=== PATIENT | female | born 1940 | race Caucasian/White ===

== ENCOUNTER 2017-09-04 14:23 | Emergency (ER) | payer MEDICARE, OTHER ==
[2017-09-04 14:41] VITALS: BP 175/74
--- NOTE | 2017-09-04 14:47 | UC ---
Laceration HPI - HPI Summary HPI Summary: 76 yo WF c/o right forehead laceration s/p fall while bending down to sit on a bench and felt "unsteady on her feet" and hit her head on concrete. 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 Hx Last Menstrual Period: post Laceration Location: Head Mechanism Of Injury: Blunt Trauma Onset/Duration: Sudden Onset Severity: Moderate Pain Intensity: 4 - Allergies/Home Medications Allergies/Adverse Reactions: Allergies Allergy/AdvReac Type Severity Reaction Status Date / Time No Known Allergies Allergy Verified 09/04/17 14:42 PMH/Surg Hx/FS Hx/Imm Hx - Additional Past Medical History Additional PMH: P.VERA, HTN Previously Healthy: Yes - Denies h/o CVA, MD Cardiovascular History: Hypertension Psychological History: Anxiety - Surgical History Surgical History: Yes Surgery Procedure, Year, and Place: left wrist plates - Family History Known Family History: Positive: Unknown - Social History Alcohol Use: None Substance Use Type: None Smoking Status (MU): Never Smoked Tobacco Review of Systems Constitutional: Negative Skin: Other - right above brow laceration Eyes: Negative ENT: Negative Respiratory: Negative Cardiovascular: Negative Gastrointestinal: Negative Genitourinary: Negative Motor: Negative Neurovascular: Negative Musculoskeletal: Negative Neurological: Negative Psychological: Negative All Other Systems Reviewed And Are Negative: Yes Physical Exam Triage Information Reviewed: Yes Vital Signs: Initial Vital Signs Temp 36.6 C 09/04/17 14:37 Pulse 80 09/04/17 14:37 Resp 16 09/04/17 14:37 BP 175/74 09/04/17 14:37 Pulse Ox 98 09/04/17 14:37 Eye Exam: Normal ENT Exam: Other - ROM around neck intact Dental Exam: Normal Neck exam: Normal Neck: Positive: Nontender Respiratory Exam: Normal Cardiovascular Exam: Normal Abdominal Exam: Normal Musculoskeletal Exam: Normal Neurological Exam: Normal Neurological: Positive: Alert - CN 2-12 grossly intact Psychological Exam: Normal Skin Exam: Normal Skin: Positive: significant lesion(s) - right brow laceration linear moderately deep, 3cm long and about 4mm deep - Additional Comments NO scalp tenderness or any other lesion noted on exam Laceration Repair - Laceration Repair 1 Description: Linear Laceration Size After Repair: Length (cm) - 3, Width (mm) - 3, Depth (mm) - 4 Type Injection: Local Anesthesia Used: 0.25% Marcaine Cleansing Completed Via Routine Prep: Yes Irrigation With Pressure Irrigation Device: No Closure Material: Sutures Closure Method: Multilayer Suture Of: Skin, SQ Suture Type: Other - ethilon Laceration Course/Dx - Course/Dx Course Of Treatment: right brow laceration 3cm long x 4mmdeep x 2mm wide, Subcut layer closed with FOUR 6-0 vicryl , followed by FIVE 5-0 ethilon superficial skin sutures, will cover with abx for moderately deep wound. Tdap Im x 1. CT head neg for bleed, but if signs of concussion occur such as n/v/ mental fogginess or lethargy, advosed to go to ER faby - Differential Dx - Laceration/Wound Differental Diagnoses: Laceration Provider Diagnoses: right brow laceration. Fall Discharge - Discharge Plan Condition: Stable Disposition: HOME Discharge Disposition Comment: Return to clinic in 2 days for a wound check Prescriptions: Cephalexin CAP* [Keflex CAP*] 500 mg PO BID 7 Days #14 cap Patient Education Materials: Laceration (ED) Referrals: Rach Rossi MD [Primary Care Provider] - Additional Instructions: F/u in urgent care in 2 days for wound check
[2017-09-04] MEDS ORDERED: Bupivacaine 0.25% MDV* 50 ML VIAL INJ ONE ×4 (14:48→15:07)
[2017-09-04] MEDS ORDERED: Bupivacaine 0.25% SDV* 30 ML ONE (15:06)
--- NOTE | 2017-09-04 15:09 | RAD ---
Indication: Fall, head injury. CT of the brain was performed without IV contrast. Ventricular structures are midline. No midline shift is noted. The extra-axial spaces are unremarkable. There is no evidence of intracranial mass or hemorrhage. No other high or low density lesions identified. When compared to previous exam of August 07, 2013 no significant change is noted. Mastoid air cells and paranasal sinuses are otherwise unremarkable. IMPRESSION: NO INTRACRANIAL MASS OR HEMORRHAGE IS NOTED.
[2017-09-04] MEDS ORDERED: Tetan/Diph/Pertus SYR(Tdap)* 0.5 ML SYR(BOOSTRIX) use SYR IM ONE (15:58)
== END 2017-09-04 17:05 | disposition home or self-care (01) ==
LOC: UCEAST 14:23
DX: S01.111A Laceration without foreign body of right eyelid and periocular area, initial encounter (principal); W18.39XA Other fall on same level, initial encounter; Y93.89 Activity, other specified; Y92.9 Unspecified place or not applicable; Z23 Encounter for immunization; D45 Polycythemia vera; I10 Essential (primary) hypertension; F41.9 Anxiety disorder, unspecified
CPT/HCPCS: 12001; 12031; 12052; 70450; 90715; 96372; 99212; G0463

== ENCOUNTER 2017-09-06 08:23 | Emergency (ER) | payer MEDICARE, OTHER ==
[2017-09-06 09:05] VITALS: BP 141/71
--- NOTE | 2017-09-06 09:48 | UC ---
Tito Padilla Nilda, scribed for Levon Urrutia MD on 09/06/17 at 0934 . HPI Wound/Suture Re-check - HPI Summary HPI Summary: This patient is a 76 year old F presenting to [facility] requesting wound recheck for a laceration on right eyebrow that was treated with sutures 2 days ago. The patient rates the pain 0/10 in severity. Symptoms aggravated and alleviated by nothing. - History Of Current Complaint Chief Complaint: UCSkin Stated Complaint: WOUND RECHECK Time Seen by Provider: 09/06/17 09:17 Hx Obtained From: Patient Hx Last Menstrual Period: post Onset/Duration: Lasting Days, Still Present Surgical Site: right eye brow Pain Intensity: 0 Pain Scale Used: 0-10 Numeric Procedure Type: Lac Repair - Allergies/Home Medications Allergies/Adverse Reactions: Allergies Allergy/AdvReac Type Severity Reaction Status Date / Time No Known Allergies Allergy Verified 09/06/17 09:06 PMH/Surg Hx/FS Hx/Imm Hx Endocrine History: Thyroid Disease Cardiovascular History: Hypertension - Surgical History Surgical History: Yes Surgery Procedure, Year, and Place: left wrist plates - Family History Known Family History: Negative: Cardiac Disease, Hypertension, Diabetes - Social History Alcohol Use: None Substance Use Type: None Smoking Status (MU): Never Smoked Tobacco Review of Systems Skin: Other - laceration with stitches on right eyebrow Respiratory: Other - negative SOB All Other Systems Reviewed And Are Negative: Yes Physical Exam Triage Information Reviewed: Yes Vital Signs: Initial Vital Signs Temp 98.8 F 09/06/17 08:59 Pulse 61 09/06/17 08:59 Resp 16 09/06/17 08:59 BP 141/71 09/06/17 08:59 Pulse Ox 100 09/06/17 08:59 Vital Signs Reviewed: Yes - Additional Comments VITAL SIGNS: Reviewed. GENERAL: Patient is a well developed and nourished F who is lying comfortable in the stretcher. Patient is not in any acute respiratory distress. HEAD AND FACE: Normocephalic EYES: PERRLA, EOMI x 2. EARS: Hearing grossly intact. MOUTH: Oropharynx within normal limits. NECK: Supple, trachea is midline, no adenopathy, no JVD, no carotid bruit. CHEST: Symmetric, no tenderness at palpation LUNGS: Clear to auscultation bilaterally. No wheezing or crackles. CVS: Regular rate and rhythm, S1 and S2 present, no murmurs or gallops appreciated. ABDOMEN: Soft, non-tender. Bowel sounds are normal. No abdominal abnormal pulsations. EXTREMITIES: Full ROM in all major joints, no edema, no cyanosis or clubbing. NEURO: Alert and oriented x 3. No acute neurological deficits. Speech is normal and follows commands. SKIN: Dry and warm; Laceration with stitches on right brow looks clean, dry, intact, with no erythema, and no discharge Course/Dx - Course Course Of Treatment: This patient is a 76 year old F presenting to [facility] requesting wound recheck for a laceration on right eyebrow that was treated with sutures 2 days ago. The patient rates the pain 0/10 in severity. Symptoms aggravated and alleviated by nothing. Laceration looks clean, dry, intact, with no erythema, and no discharge. Therefore, pt will have follow up with PCP or return to for suture removal. The patient is hemodynamically stable, alert and oriented x3. I discussed all the findings and test results with the patient. Patient was instructed to return to the urgent care or go to ER immediately if any of the symptoms return or worsens. Plan of care was discussed with the patient and patient understands and agrees. All questions were answered to patient satisfaction. There were no further complaints or concerns. - Differential Dx - Laceration/Wound Differential Diagnoses: Cellulitis, Dehiscence Provider Diagnoses: Wound check Discharge - Discharge Plan Condition: Stable Disposition: HOME Patient Education Materials: Acute Wound Care (ED) Referrals: Rach Rossi MD [Primary Care Provider] - Additional Instructions: Follow up with PCP or return to the UC in 7 -10 days for suture removal The documentation as recorded by the Tito husain Nilda accurately reflects the service I personally performed and the decisions made by , Levon Urrutia MD.
== END 2017-09-06 09:30 | disposition home or self-care (01) ==
LOC: UCEAST 08:23
DX: S01.111A Laceration without foreign body of right eyelid and periocular area, initial encounter (principal); I10 Essential (primary) hypertension; E07.9 Disorder of thyroid, unspecified; X58.XXXA Exposure to other specified factors, initial encounter; Y92.9 Unspecified place or not applicable
CPT/HCPCS: 99211; G0463

== ENCOUNTER 2017-09-13 08:08 | Emergency (ER) | payer MEDICARE, OTHER ==
--- NOTE | 2017-09-13 08:23 | UC ---
HPI Wound/Suture Re-check - HPI Summary HPI Summary: stitches above right eye brow placed 10 days ado---well approximated healing with out difficulty-here for removal - History Of Current Complaint Chief Complaint: UCWounds Stated Complaint: SUTURE REMOVAL Time Seen by Provider: 09/13/17 08:15 Hx Obtained From: Patient Hx Last Menstrual Period: post Onset/Duration: Sudden Onset, Lasting Days - 10, Still Present Severity: Mild Pain Intensity: 0 - Allergies/Home Medications Allergies/Adverse Reactions: Allergies Allergy/AdvReac Type Severity Reaction Status Date / Time No Known Allergies Allergy Verified 09/13/17 08:18 PMH/Surg Hx/FS Hx/Imm Hx Previously Healthy: No Endocrine History: Hypothyroidism Cardiovascular History: Hypertension - Surgical History Surgical History: Yes Surgery Procedure, Year, and Place: left wrist plates - Family History Known Family History: Positive: Unknown Negative: Cardiac Disease, Hypertension, Diabetes - Social History Occupation: Retired Lives: With Family Alcohol Use: None Substance Use Type: None Smoking Status (MU): Never Smoked Tobacco Review of Systems Constitutional: Negative Skin: Other - well healed wound above right eye, Eyes: Negative ENT: Negative Respiratory: Negative Cardiovascular: Negative Gastrointestinal: Negative Genitourinary: Negative Motor: Negative Neurovascular: Negative Musculoskeletal: Negative Neurological: Negative Psychological: Negative Is Patient Immunocompromised?: No All Other Systems Reviewed And Are Negative: Yes Physical Exam Triage Information Reviewed: Yes Appearance: Well-Appearing, No Pain Distress, Well-Nourished Vital Signs Reviewed: Yes Eye Exam: Normal Eyes: Positive: Conjunctiva Clear ENT Exam: Normal ENT: Positive: Normal ENT inspection, Hearing grossly normal. Negative: Trismus , Muffled voice, Hoarse voice, Dental tenderness, Sinus tenderness Dental Exam: Normal Neck exam: Normal Neck: Positive: Supple, Nontender Respiratory Exam: Normal Respiratory: Positive: Chest non-tender, No respiratory distress, No accessory muscle use Cardiovascular Exam: Normal Cardiovascular: Positive: Pulses Normal, Brisk Capillary Refill Musculoskeletal Exam: Normal Musculoskeletal: Positive: Strength Intact, ROM Intact, No Edema Neurological Exam: Normal Neurological: Positive: Alert, Muscle Tone Normal Psychological Exam: Normal Skin Exam: Normal Skin: Positive: Other - eechymosis remains right eye (is fading), well healed laceration above right eye Re-Evaluation - Re-Evaluation First Eval Change: Improved - sutures removed patient tolerated well, wound well approximated Course/Dx - Course Course Of Treatment: scar prevention, soap and water wash, follow BP with pcp - Differential Dx - Laceration/Wound Provider Diagnoses: healing wound/suture removal-hypertension in poor control Discharge - Discharge Plan Condition: Stable Disposition: HOME Patient Education Materials: Stitches Removal (ED) Referrals: Rach Rossi MD [Primary Care Provider] - If Needed
[2017-09-13 08:24] VITALS: BP 146/57
== END 2017-09-13 08:28 | disposition home or self-care (01) ==
LOC: UCEAST 08:08
DX: Z48.02 Encounter for removal of sutures (principal); I10 Essential (primary) hypertension; E03.9 Hypothyroidism, unspecified
CPT/HCPCS: 99211; G0463

== ENCOUNTER 2018-02-07 19:02 | Emergency (ER) | payer MEDICARE, OTHER ==
[2018-02-07 19:28] VITALS: BP 173/114
--- NOTE | 2018-02-07 19:52 | UC ---
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 Hx Last Menstrual Period: post ?: No Mechanism Of Injury: fall Onset/Duration: Sudden Onset Pain Intensity: 3 Pain Scale Used: 0-10 Numeric Associated Signs And Symptoms: Positive: LOC Duration Unknown, Memory Loss - Allergies/Home Medications Allergies/Adverse Reactions: Allergies Allergy/AdvReac Type Severity Reaction Status Date / Time No Known Allergies Allergy Verified 02/07/18 19:29 PMH/Surg Hx/FS Hx/Imm Hx Previously Healthy: No Endocrine History: Hypothyroidism Cardiovascular History: Hypertension - Surgical History Surgical History: Yes Surgery Procedure, Year, and Place: left wrist plates - Family History Known Family History: Positive: Unknown Negative: Cardiac Disease, Hypertension, Diabetes - Social History Occupation: Retired Lives: With Family Alcohol Use: None Substance Use Type: None Smoking Status (MU): Never Smoked Tobacco Review of Systems Constitutional: Negative Skin: Negative Eyes: Negative ENT: Negative Respiratory: Negative Cardiovascular: Negative Gastrointestinal: Negative Genitourinary: Negative Motor: Negative Neurovascular: Negative Musculoskeletal: Negative Neurological: Negative Psychological: Negative Is Patient Immunocompromised?: No All Other Systems Reviewed And Are Negative: Yes Physical Exam Triage Information Reviewed: Yes Appearance: Well-Appearing, No Pain Distress, Well-Nourished Vital Signs: Initial Vital Signs Temp 97.8 F 02/07/18 19:22 Pulse 67 02/07/18 19:22 Resp 16 02/07/18 19:22 BP 173/114 02/07/18 19:22 Pulse Ox 100 02/07/18 19:22 Vital Signs Reviewed: Yes Eye Exam: Normal Eyes: Positive: Conjunctiva Clear ENT Exam: Normal ENT: Positive: Normal ENT inspection, Hearing grossly normal, Pharynx normal. Negative: Trismus, Muffled voice, Hoarse voice Dental Exam: Normal Neck exam: Normal Neck: Positive: Supple, Nontender Respiratory Exam: Normal Respiratory: Positive: Chest non-tender, Lungs clear, Normal breath sounds, No respiratory distress, No accessory muscle use Cardiovascular Exam: Normal Cardiovascular: Positive: RRR, No Murmur, Pulses Normal, Brisk Capillary Refill Musculoskeletal Exam: Normal Musculoskeletal: Positive: Strength Intact, ROM Intact, No Edema Neurological Exam: Normal Neurological: Positive: Alert, Muscle Tone Normal Psychological Exam: Normal Skin Exam: Normal Head Injury Course/Dx - Course Course Of Treatment: patient will be discharged from the urgent care to go directly to the emergency department at [facility] with family driving - Differential Dx/Diagnosis Provider Diagnoses: headinjury, hypertension Discharge - Sign-Out/Discharge Documenting (check all that apply): Patient Departure - Discharge Plan Condition: Fair Disposition: HOME-RECOMMEND TO ED Patient Education Materials: Head Injury (ED), Hypertension (ED) Referrals: Rach Rossi MD [Primary Care Provider] - Additional Instructions: please go directly to the emergency department for further evaluation that can no be completed at the urgent care this evening - Billing Disposition and Condition Condition: FAIR Disposition: Home-Recommend to ED
== END 2018-02-07 19:55 | disposition home health service (06) ==
LOC: UCEAST 19:02
DX: S09.90XA Unspecified injury of head, initial encounter (principal); W19.XXXA Unspecified fall, initial encounter; Z91.81 History of falling; Y93.9 Activity, unspecified; Y92.9 Unspecified place or not applicable; I10 Essential (primary) hypertension
CPT/HCPCS: 99212; G0463

== ENCOUNTER 2018-02-07 20:16 | Emergency (ER) | payer MEDICARE, OTHER ==
[2018-02-07 20:26] VITALS: BP 168/68
[2018-02-07] MEDS ORDERED: Acetaminophen TAB* 325 MG PO ONE (22:54)
--- NOTE | 2018-02-07 22:59 | ED ---
Head Injury - HPI Summary HPI Summary: This is scribe Maximus Thompson documenting for attending Dr. Talon Huffman MD. A 77 y/o female present to ED s/p head injury. According to the patient, she experiences diffuse body myalgia. She characterizes the pain as soreness reaching 2-3/10 in severity. She stated that the fall was accidental as she was going up the stairs and fell backwards. Because of the incident, she fell backwards and hit her elbow and back of head. She denies any LOC. Currently on no blood thinners. Tetanus shot was in August. PMHx of falls. - History Of Current Complaint Chief Complaint: EDHeadInjury Stated Complaint: FALL/HEAD INJURY Time Seen by Provider: 02/07/18 22:44 Hx Obtained From: Patient Hx Last Menstrual Period: post Mechanism Of Injury: Fall From A Standing Position Onset/Duration: Started Hours Ago, Still Present Onset of Pain: Immediate Severity Currently: Mild Severity Initially: Mild Pain Intensity: 3 Pain Scale Used: 0-10 Numeric Location of Head Injury: Occipital Character: Other: - Soreness Aggravating Factor(s): Other: - NOTHING Alleviating Factor(s): Other: - NOTHING Associated Signs And Symptoms: Other: - Diffuse myalgia (soreness) - Allergies/Home Medications Allergies/Adverse Reactions: Allergies Allergy/AdvReac Type Severity Reaction Status Date / Time No Known Allergies Allergy Verified 02/07/18 19:29 PMH/Surg Hx/FS Hx/Imm Hx Endocrine/Hematology History: Reports: 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, Hx Thyroid Disease - hypo Cardiovascular History: Reports: Hx Hypertension Musculoskeletal History: Reports: Hx Osteoporosis Sensory History: Reports: Hx Cataracts - PENDING SURGERY, Hx Contacts or Glasses - FOR DRIVING Denies: Hx Hearing Aid Opthamlomology History: Reports: Hx Cataracts - PENDING SURGERY, Hx Contacts or Glasses - FOR DRIVING - Surgical History Surgery Procedure, Year, and Place: left wrist plates Hx Anesthesia Reactions: No - Immunization History Date of Tetanus Vaccine: unk Date of Influenza Vaccine: fall 2016 Infectious Disease History: No Infectious Disease History: Denies: Traveled Outside the [place] in Last 30 Days - Family History Known Family History: Negative: Cardiac Disease, Hypertension, Diabetes - Social History Alcohol Use: None Substance Use Type: Reports: None Smoking Status (MU): Never Smoked Tobacco Review of Systems Negative: Fever Positive: Myalgia - Diffuse, soreness Neurological: Other - NEGATIVE: LOC All Other Systems Reviewed And Are Negative: Yes Physical Exam - Summary Physical Exam Summary: GENERAL: Patient is a well-developed and nourished female who is lying comfortable in the stretcher. Patient is not in any acute respiratory distress. HEAD AND FACE: No signs of trauma. No ecchymosis, hematomas or skull depressions. No sinus tenderness. EYES: PERRLA, EOMI x 2, No injected conjunctiva, no nystagmus. EARS: Hearing grossly intact. Ear canals and tympanic membranes are within normal limits. MOUTH: Oropharynx within normal limits. NECK: Supple, trachea is midline, no adenopathy, no JVD, no carotid bruit, no c- spine tenderness, neck with full ROM. CHEST: Symmetric, no tenderness at palpation LUNGS: Clear to auscultation bilaterally. No wheezing or crackles. CVS: Regular rate and rhythm, S1 and S2 present, no murmurs or gallops appreciated. ABDOMEN: Soft, non-tender. No signs of distention. No rebound no guarding, and no masses palpated. Bowel sounds are normal. EXTREMITIES: FROM in all major joints, no edema, no cyanosis or clubbing. NEURO: Alert and oriented x 3. No acute neurological deficits. Speech is normal and follows commands. SKIN: Dry and warm. Mild head abrasion on left occipital area. Triage Information Reviewed: Yes Vital Signs On Initial Exam: Initial Vitals Temp Pulse Resp BP Pulse Ox 97.7 F 74 18 168/68 100 02/07/18 20:19 02/07/18 20:19 02/07/18 20:19 02/07/18 20:19 02/07/18 20:19 Vital Signs Reviewed: Yes Diagnostics - Vital Signs Vital Signs Temp Pulse Resp BP Pulse Ox 02/07/18 20:19 97.7 F 74 18 168/68 100 - Laboratory Lab Statement: Any lab studies that have been ordered have been reviewed, and results considered in the medical decision making process. Head Injury Course/Dx Course Of Treatment: A 77 y/o female present to ED s/p head injury. According to the patient, she experiences diffuse body myalgia. She characterizes the pain as soreness reaching 2-3/10 in severity. She stated that the fall was accidental as she was going up the stairs and fell backwards. Because of the incident, she fell backwards and hit her elbow and back of head. She denies any LOC. Currently on no blood thinners. No laboratory scans were done. Discussed with pt CAT scan, however, she does not want it. In the ED course, the patient recieved Tylenol. Pt will be discharged with a diagnosis of mild head injury. Pt is to follow up with PCP in 1-2 days. Pt is agreeable with this plan. - Diagnoses Provider Diagnoses: Head injury Discharge - Sign-Out/Discharge Documenting (check all that apply): Patient Departure - DISCHARGE - Discharge Plan Condition: Stable Disposition: HOME Patient Education Materials: Head Injury (ED) Referrals: Rach Rossi MD [Primary Care Provider] - 2 Days Additional Instructions: RETURN TO ED FOR ANY NEW OR WORSENING SYMPTOMS.
== END 2018-02-07 23:13 | disposition home or self-care (01) ==
LOC: ED 20:16
DX: S09.90XA Unspecified injury of head, initial encounter (principal); W19.XXXA Unspecified fall, initial encounter; Y92.9 Unspecified place or not applicable; Z91.81 History of falling; Y93.9 Activity, unspecified; I10 Essential (primary) hypertension
CPT/HCPCS: 99282

== ENCOUNTER → 2019-02-16 05:35 | Day surgery (SDC) | payer MEDICARE, OTHER ==
[~2019-02-16 05:35] MED LIST: Artificial Tear OPHTH.OINT* 3.5 GM ONE; BSS OPTH.SOL* BTL ONE; Buffered Lidocaine 1% SYRIN* 1 ML/SYRINGE INTRADERM ONE; Lactated Ringers 1000 ML Bag* 1,000 ML IV SCH; Lidocaine 1% w EPI 1:100,000* 30 ML VIAL ONE; Midazolam* 1 MG/ML 2 ML VIAL (2 MG) ONE; Mineral Oil Sterile, TOPICAL* 25 ML BTL ONE; Naloxone* 0.4 MG/ML 1 ML VIAL IV PRN; Propofol* 10 MG/ML 20 ML BTL ONE; ceFAZolin 2 GM in NS PREMIX(*) 2 GM/100 ML BAG IVPB ONE; fentaNYL* 50 MCG/ML 2 ML VIAL (100 MCG VIAL) ONE
[2019-02-16 11:13] VITALS: BP 130/60
== END | disposition home or self-care (01) ==
LOC: OR 05:35
PROVIDERS: ATTEND Plastic Surgery
DX: C44.319 Basal cell carcinoma of skin of other parts of face (principal); R60.0 Localized edema; E03.9 Hypothyroidism, unspecified
CPT/HCPCS: 88305; 88331; 88332; A9270-GY; J0690; J2250; J2704; J3010

== ENCOUNTER 2022-12-10 03:54 | Inpatient (IN) ==
[2022-12-10 05:42] LABS: Venous Bicarbonate HCO3 36.8 mmol/L (24-28)
[2022-12-10 06:22] LABS: Hematocrit 42.1 % (35-45); Hemoglobin 13.4 g/dL (11.5-14.3); Mean Corpuscular Hemoglobin 35.2 pg (27-33); Mean Corpuscular Hgb Conc 31.9 g/dL (31-36); Mean Corpuscular Volume 110.5 fL (80-97); Mean Platelet Volume 9.1 fL (7.5-11.2); Platelet Count 939 10^3/uL (150-450); Red Blood Count 3.81 10^6/uL (3.63-4.92); Red Cell Distribution Width 18.8 % (12-17); White Blood Count 65.8 10^3/uL (3.8-11.8)
[2022-12-10 06:39] LABS: ALT 44 U/L (7-52); Albumin 3.7 g/dL (3.2-5.2); Albumin/Globulin Ratio 2.1 (1-3); Alkaline Phosphatase 155 U/L (35-149); Blood Urea Nitrogen 17 mg/dL (6-24); CO2 Carbon Dioxide 32 mmol/L (22-32); Calcium 8.7 mg/dL (8.6-10.3); Chloride 96 mmol/L (101-111); Creatinine, Serum 0.71 mg/dL (0.51-0.95); Globulin 1.8 g/dL (2-4); Glucose 98 mg/dL (70-100); Lipase 20 U/L (11.0-82.0); Sodium 140 mmol/L (135-145); Total Protein 5.5 g/dL (6.4-8.9); eGFR CKD-EPI 85.4 (>60)
[2022-12-10 06:43] LABS: Anion Gap 12 mmol/L (2-16)
[2022-12-10 06:53] LABS: Anisocytosis 1+; Macrocytosis 2+; Polychromasia 1+
[2022-12-10 06:54] LABS: ABS Basophils 0.1 10^3/uL (0.0-0.1); ABS Eosinophils 0.4 10^3/uL (0.0-0.5); ABS Lymphocytes 1.3 10^3/uL (1.0-4.8); ABS Monocytes 0.5 10^3/uL (0.0-0.9); ABS Neutrophils 63.5 10^3/uL (1.5-7.6); ABS Nucleated RBC 0.72 10^3/ul; Eosinophil % 0.6 %; Nucleated Red Blood Cells % 1.1 /100 WBC (0.0-0.4)
[2022-12-10] MEDS ORDERED: Iohexol 350 (CONTRAST) 500 ML MDV IV ONE (06:57)
[2022-12-10] MEDS ORDERED: NS 0.9% 1000 ml BAG 1,000 ML IV ONE (07:34)
[2022-12-10] MEDS ORDERED: Ondansetron 4 mg VIAL 2 MG/ML 2 ml VIAL IV ONE (07:34)
[2022-12-10 08:51] LABS: Hematocrit 36.5 % (35-45); Hemoglobin 11.4 g/dL (11.5-14.3); Mean Corpuscular Hemoglobin 35.7 pg (27-33); Mean Corpuscular Hgb Conc 31.3 g/dL (31-36); Red Cell Distribution Width 18.7 % (12-17); White Blood Count 60.8 10^3/uL (3.8-11.8)
[2022-12-10 09:21] LABS: Anisocytosis 2+; Macrocytosis 2+; Polychromasia 2+
[2022-12-10 09:22] LABS: ABS Basophils 0.3 10^3/uL (0.0-0.1); ABS Eosinophils 0.5 10^3/uL (0.0-0.5); ABS Lymphocytes 0.9 10^3/uL (1.0-4.8); ABS Neutrophils 58.1 10^3/uL (1.5-7.6); Eosinophil % 0.8 %; Lymphocyte % 1.5 %; Mean Platelet Volume 8.9 fL (7.5-11.2); Nucleated Red Blood Cells % 0.5 /100 WBC (0.0-0.4); Platelet Count 626 10^3/uL (150-450); Potassium Redraw 4.7 mmol/L (3.5-5.0)
[2022-12-10 10:25] LABS: INR 1.37 (0.88-1.18)
[2022-12-10] MEDS ORDERED: Midazolam 10 mg/10 ml VIAL 1 mg/ml 10 ml VIAL (10 mg) IV SLOW PU ONE (10:41)
[2022-12-10] MEDS ORDERED: fentaNYL 100 mcg/2 ml 50 MCG/ML VIAL IV SLOW PU ONE (10:41)
[2022-12-10] MEDS ORDERED: Flumazenil 0.5 mg/5 ml 0.1 MG/ML 5 ml VIAL IV PRN (10:41)
[2022-12-10] MEDS ORDERED: Naloxone 0.4 mg VIAL 0.4 mg/ml 1 ml VIAL IV PUSH PRN (10:41)
[2022-12-10] MEDS ORDERED: Iohexol 350 (CONTRAST) 100 ML PAK IV ONE ×2 (10:57→11:15)
[2022-12-10] MEDS ORDERED: Lidocaine 1% VIAL 10 MG/ML VIAL 30 ML ONE (10:57)
[2022-12-10] MEDS ORDERED: Heparin 2 UNITS/ML IVPREMIX 3,000 UNIT/1,500 ML BAG IV ONE (10:57)
[2022-12-10] MEDS ORDERED: Midazolam 5 mg/5 ml VIAL 1 mg/ml 5 ml VIAL (5 mg) ONE (11:03)
[2022-12-10] MEDS ORDERED: Ondansetron 4 mg VIAL 2 MG/ML 2 ml VIAL ONE (11:03)
[2022-12-10] MEDS ORDERED: fentaNYL 100 mcg/2 ml 50 MCG/ML VIAL ONE ×2 (11:03→13:45)
[2022-12-10] MEDS ORDERED: nitroGLYCERIN DRIP 25,000 MCG/250 ML BTL ONE (11:59)
[2022-12-10] MEDS ORDERED: Piperacillin/Tazobac ADVAN 3.375 GM in NS 0.9% 100 ml BAG 100 ML IV ONE (13:27)
[2022-12-10] MEDS ORDERED: Zosyn per Pharmacy NOTE FOLLOW UP SCH (14:00)
[2022-12-10] MEDS ORDERED: Acetaminophen IV 1 GM/100ML 1,000 MG/100 ML BAG IV PRN (14:40)
[2022-12-10 16:36] LABS: Hematocrit 36.7 % (35-45); Hemoglobin 11.3 g/dL (11.5-14.3); Mean Corpuscular Hemoglobin 34.6 pg (27-33); Mean Corpuscular Hgb Conc 30.6 g/dL (31-36); Mean Corpuscular Volume 112.8 fL (80-97); Mean Platelet Volume 8.8 fL (7.5-11.2); Platelet Count 905 10^3/uL (150-450); Red Blood Count 3.26 10^6/uL (3.63-4.92); Red Cell Distribution Width 19.3 % (12-17); White Blood Count 60.3 10^3/uL (3.8-11.8)
[2022-12-10 16:57] LABS: Anisocytosis 1+; Macrocytosis 2+
[2022-12-10 16:58] LABS: Platelet Morphology Large; Polychromasia 1+; Tear Drop Cells 1+
[2022-12-10 16:59] LABS: ABS Basophils 0.5 10^3/uL (0.0-0.1); ABS Eosinophils 0.2 10^3/uL (0.0-0.5); ABS Lymphocytes 0.9 10^3/uL (1.0-4.8); ABS Monocytes 0.9 10^3/uL (0.0-0.9); ABS Neutrophils 57.8 10^3/uL (1.5-7.6); ABS Nucleated RBC 0.31 10^3/ul; Eosinophil % 0.4 %; Lymphocyte % 1.5 %; Nucleated Red Blood Cells % 0.5 /100 WBC (0.0-0.4)
[2022-12-10] MEDS: ZOSYN 3.375 GM Q8H per EXTENDED INFUSION IV SCH (23:03)
[2022-12-11] MEDS: ZOSYN 3.375 GM Q8H per EXTENDED INFUSION IV SCH ×3 (06:06→21:01)
[2022-12-11 07:27] LABS: Hematocrit 33.5 % (35-45); Hemoglobin 10.4 g/dL (11.5-14.3); Mean Corpuscular Hemoglobin 35.5 pg (27-33); Mean Corpuscular Hgb Conc 30.9 g/dL (31-36); Mean Corpuscular Volume 114.9 fL (80-97); Mean Platelet Volume 8.7 fL (7.5-11.2); Platelet Count 703 10^3/uL (150-450); Red Blood Count 2.92 10^6/uL (3.63-4.92); Red Cell Distribution Width 19.3 % (12-17); White Blood Count 65.2 10^3/uL (3.8-11.8)
[2022-12-11 07:47] LABS: Calcium 8.2 mg/dL (8.6-10.3); Potassium 4.9 mmol/L (3.5-5.0)
[2022-12-11 07:53] LABS: Creatinine, Serum 0.82 mg/dL (0.51-0.95); Phosphorus 3.6 mg/dL (2.5-5.0); eGFR CKD-EPI 71.8 (>60)
[2022-12-11] MEDS ORDERED: Furosemide 40 mg/4 ml IV VIAL IV SLOW PU ONE (08:07)
[2022-12-11 08:35] LABS: Anisocytosis 1+; Hypochromasia 1+; Macrocytosis 2+; Polychromasia 1+
[2022-12-11 08:36] LABS: Platelet Morphology Large
[2022-12-11 08:38] LABS: ABS Basophils 0.2 10^3/uL (0.0-0.1); ABS Eosinophils 0.2 10^3/uL (0.0-0.5); ABS Monocytes 1.1 10^3/uL (0.0-0.9); ABS Neutrophils 62.7 10^3/uL (1.5-7.6); ABS Nucleated RBC 0.27 10^3/ul; Eosinophil % 0.4 %; Lymphocyte % 1.6 %; Nucleated Red Blood Cells % 0.4 /100 WBC (0.0-0.4); Tear Drop Cells 1+
[2022-12-11] MEDS: Pantoprazole VIAL 40 MG VIAL IV SCH (08:56)
[2022-12-11] MEDS ORDERED: Lidocaine 1% MPF 5 ML VIAL INJ ONE (10:14)
[2022-12-11] MEDS ORDERED: Lactated Ringers 1000 ml BAG 500 ML IV ONE ×2 (10:44→11:59)
[2022-12-11] MEDS ORDERED: Lactated Ringers 1000 ml BAG 1,000 ML IV SCH (12:00)
[2022-12-11] MEDS ORDERED: NS 0.9% 1000 ml BAG 1,000 ML IV SCH (13:00)
[2022-12-11 14:14] LABS: Urine Appearance Clear; Urine Bilirubin Negative (Negative); Urine Blood Negative (Negative); Urine Color Yellow; Urine Glucose Negative (Negative); Urine Ketones Negative (Negative); Urine Nitrite Negative (Negative); Urine Protein Negative (Negative); Urine Specific Gravity 1.031 (1.002-1.030); Urine Urobilinogen Negative (Negative)
[2022-12-11 17:37] LABS: Anisocytosis 1+; Hypochromasia 1+; Macrocytosis 2+; Polychromasia 1+; Tear Drop Cells 1+
[2022-12-11 17:40] LABS: ABS Basophils 0.5 10^3/uL (0.0-0.1); ABS Eosinophils 0.4 10^3/uL (0.0-0.5); ABS Lymphocytes 0.3 10^3/uL (1.0-4.8); ABS Monocytes 0.2 10^3/uL (0.0-0.9); ABS Neutrophils 62.3 10^3/uL (1.5-7.6); ABS Nucleated RBC 0.05 10^3/ul; Eosinophil % 0.6 %; Hematocrit 29.7 % (35-45); Hemoglobin 9.1 g/dL (11.5-14.3); Lymphocyte % 0.5 %; Mean Corpuscular Hemoglobin 35.1 pg (27-33); Mean Corpuscular Hgb Conc 30.8 g/dL (31-36); Mean Corpuscular Volume 114.1 fL (80-97); Mean Platelet Volume 8.5 fL (7.5-11.2); Nucleated Red Blood Cells % 0.1 /100 WBC (0.0-0.4); Platelet Count 678 10^3/uL (150-450); Red Cell Distribution Width 19.2 % (12-17); White Blood Count 63.8 10^3/uL (3.8-11.8)
[2022-12-11 17:46] LABS: Calcium 7.6 mg/dL (8.6-10.3); Creatinine, Serum 0.92 mg/dL (0.51-0.95); Potassium 4.6 mmol/L (3.5-5.0); eGFR CKD-EPI 62.6 (>60)
[2022-12-12] MEDS: ZOSYN 3.375 GM Q8H per EXTENDED INFUSION IV SCH ×3 (04:18→20:12)
[2022-12-12 06:18] LABS: Hematocrit 32.5 % (35-45); Hemoglobin 9.9 g/dL (11.5-14.3); Mean Corpuscular Hemoglobin 34.6 pg (27-33); Mean Corpuscular Hgb Conc 30.6 g/dL (31-36); Mean Corpuscular Volume 113.1 fL (80-97); Mean Platelet Volume 8.6 fL (7.5-11.2); Platelet Count 744 10^3/uL (150-450); Red Blood Count 2.87 10^6/uL (3.63-4.92); Red Cell Distribution Width 19.2 % (12-17)
[2022-12-12 07:03] LABS: CO2 Carbon Dioxide 31 mmol/L (22-32); Calcium 7.8 mg/dL (8.6-10.3); Chloride 104 mmol/L (101-111); Sodium 144 mmol/L (135-145)
[2022-12-12 07:08] LABS: Blood Urea Nitrogen 22 mg/dL (6-24); Creatinine, Serum 0.96 mg/dL (0.51-0.95); Glucose 70 mg/dL (70-100); eGFR CKD-EPI 59.4 (>60)
[2022-12-12 07:24] LABS: Anion Gap 9 mmol/L (2-16)
[2022-12-12 07:27] LABS: Potassium, Whole Blood 3.8 mmol/L (3.4-4.5)
[2022-12-12] MEDS: Pantoprazole VIAL 40 MG VIAL IV SCH (08:00)
[2022-12-12 08:32] LABS: Macrocytosis 1+
[2022-12-12 08:33] LABS: Polychromasia 1+
[2022-12-12 08:34] LABS: Hypochromasia 2+
[2022-12-12 08:35] LABS: Anisocytosis 1+
[2022-12-12 08:40] LABS: ABS Basophils 0.8 10^3/uL (0.0-0.1); ABS Eosinophils 0.1 10^3/uL (0.0-0.5); ABS Monocytes 1.3 10^3/uL (0.0-0.9); ABS Neutrophils 78.8 10^3/uL (1.5-7.6); ABS Nucleated RBC 0.18 10^3/ul; Eosinophil % 0.1 %; Lymphocyte % 1.3 %; Nucleated Red Blood Cells % 0.2 /100 WBC (0.0-0.4)
[2022-12-12 08:52] LABS: Cholesterol 138 mg/dL; HDL Cholesterol 34.9 mg/dL; LDL Cholesterol 78 mg/dL; Triglycerides 124 mg/dL
[2022-12-13] MEDS: ZOSYN 3.375 GM Q8H per EXTENDED INFUSION IV SCH ×2 (04:22→12:58)
[2022-12-13] MEDS ORDERED: Lidocaine 2% PF 5 ML VIAL INJ ONE (11:49)
[2022-12-13 14:40] LABS: Hematocrit 28.9 % (35-45); Hemoglobin 8.9 g/dL (11.5-14.3); Mean Corpuscular Hgb Conc 30.6 g/dL (31-36); Mean Corpuscular Volume 110.9 fL (80-97); Mean Platelet Volume 8.4 fL (7.5-11.2); Platelet Count 632 10^3/uL (150-450); Red Blood Count 2.61 10^6/uL (3.63-4.92); Red Cell Distribution Width 19.2 % (12-17); White Blood Count 68.2 10^3/uL (3.8-11.8)
[2022-12-13 15:15] LABS: ABS Basophils 0.2 10^3/uL (0.0-0.1); ABS Eosinophils 0.2 10^3/uL (0.0-0.5); ABS Lymphocytes 0.5 10^3/uL (1.0-4.8); ABS Monocytes 0.6 10^3/uL (0.0-0.9); ABS Neutrophils 66.6 10^3/uL (1.5-7.6); ABS Nucleated RBC 0.08 10^3/ul; Eosinophil % 0.3 %; Lymphocyte % 0.8 %; Nucleated Red Blood Cells % 0.1 /100 WBC (0.0-0.4)
[2022-12-14 07:38] LABS: Hematocrit 26.9 % (35-45); Hemoglobin 8.4 g/dL (11.5-14.3); Mean Corpuscular Hemoglobin 35.3 pg (27-33); Mean Corpuscular Hgb Conc 31.4 g/dL (31-36); Mean Corpuscular Volume 112.3 fL (80-97); Mean Platelet Volume 8.5 fL (7.5-11.2); Platelet Count 554 10^3/uL (150-450); Red Blood Count 2.39 10^6/uL (3.63-4.92); Red Cell Distribution Width 19.5 % (12-17); White Blood Count 70.1 10^3/uL (3.8-11.8)
[2022-12-14 08:18] LABS: Calcium 7.5 mg/dL (8.6-10.3); Creatinine, Serum 0.76 mg/dL (0.51-0.95); Magnesium 1.8 mg/dL (1.9-2.7); Potassium 3.4 mmol/L (3.5-5.0); eGFR CKD-EPI 78.7 (>60)
[2022-12-14] MEDS ORDERED: Magnesium Sulfate 2 gm BAG 2 GM/50 ML BAG IVPB ONE (08:20)
[2022-12-14] MEDS ORDERED: Potassium EFFERVES 25 meq TAB PO ONE (09:00)
[2022-12-14 09:40] LABS: Macrocytosis 2+
[2022-12-14 09:41] LABS: ABS Basophils 0.5 10^3/uL (0.0-0.1); ABS Eosinophils 0.3 10^3/uL (0.0-0.5); ABS Lymphocytes 0.8 10^3/uL (1.0-4.8); ABS Monocytes 0.1 10^3/uL (0.0-0.9); ABS Neutrophils 68.5 10^3/uL (1.5-7.6); ABS Nucleated RBC 0.19 10^3/ul; Eosinophil % 0.4 %; Lymphocyte % 1.2 %; Nucleated Red Blood Cells % 0.3 /100 WBC (0.0-0.4)
[2022-12-14 18:19] LABS: Urine Appearance Clear; Urine Bilirubin Negative (Negative); Urine Blood 1+ (Negative); Urine Color Yellow; Urine Glucose Negative (Negative); Urine Ketones Negative (Negative); Urine Nitrite Negative (Negative); Urine Protein 1+(30 mg/dL) (Negative); Urine Specific Gravity 1.019 (1.002-1.030); Urine Urobilinogen Negative (Negative)
[2022-12-14 18:21] LABS: Urine Bacteria 1+ (Absent); Urine Red Blood Cell Trace(0-2/hpf) (Absent); Urine Squamous Epithelial Cell Present (Absent); Urine White Blood Cell Trace(0-5/hpf) (Absent)
[2022-12-15] MEDS ORDERED: Ondansetron ODT 4 mg TAB 4 MG TAB PO ONE (07:34)
[2022-12-16 06:25] LABS: Hematocrit 29.3 % (35-45); Hemoglobin 9.1 g/dL (11.5-14.3); Mean Corpuscular Hemoglobin 33.2 pg (27-33); Mean Corpuscular Volume 107.2 fL (80-97); Mean Platelet Volume 9.1 fL (7.5-11.2); Platelet Count 512 10^3/uL (150-450); Red Blood Count 2.74 10^6/uL (3.63-4.92); Red Cell Distribution Width 18.7 % (12-17); White Blood Count 86.1 10^3/uL (3.8-11.8)
[2022-12-16 06:40] LABS: Calcium 8.2 mg/dL (8.6-10.3); Magnesium 2.3 mg/dL (1.9-2.7); Potassium 4.1 mmol/L (3.5-5.0)
[2022-12-16 06:46] LABS: Creatinine, Serum 0.93 mg/dL (0.51-0.95); eGFR CKD-EPI 61.7 (>60)
[2022-12-16 07:08] LABS: Macrocytosis 2+
[2022-12-16 07:09] LABS: ABS Basophils 0.4 10^3/uL (0.0-0.1); ABS Eosinophils 0.1 10^3/uL (0.0-0.5); ABS Monocytes 0.8 10^3/uL (0.0-0.9); ABS Neutrophils 83.7 10^3/uL (1.5-7.6); Anisocytosis 2+; Eosinophil % 0.1 %; Hypochromasia 1+; Lymphocyte % 1.2 %; Nucleated Red Blood Cells % 0.3 /100 WBC (0.0-0.4); Polychromasia 1+
[2022-12-17 06:38] LABS: Hematocrit 26.6 % (35-45); Hemoglobin 8.1 g/dL (11.5-14.3); Mean Corpuscular Hemoglobin 32.8 pg (27-33); Mean Corpuscular Hgb Conc 30.3 g/dL (31-36); Mean Corpuscular Volume 108.3 fL (80-97); Mean Platelet Volume 9.5 fL (7.5-11.2); Platelet Count 510 10^3/uL (150-450); Red Blood Count 2.46 10^6/uL (3.63-4.92); Red Cell Distribution Width 18.1 % (12-17); White Blood Count 93.2 10^3/uL (3.8-11.8)
[2022-12-18 06:19] LABS: Hematocrit 27.3 % (35-45); Hemoglobin 8.3 g/dL (11.5-14.3); Mean Corpuscular Hemoglobin 32.2 pg (27-33); Mean Corpuscular Hgb Conc 30.4 g/dL (31-36); Mean Corpuscular Volume 105.7 fL (80-97); Mean Platelet Volume 9.6 fL (7.5-11.2); Platelet Count 573 10^3/uL (150-450); Red Blood Count 2.58 10^6/uL (3.63-4.92); Red Cell Distribution Width 19.5 % (12-17); White Blood Count 96.5 10^3/uL (3.8-11.8)
[2022-12-18 06:32] LABS: Calcium 8.1 mg/dL (8.6-10.3); Creatinine, Serum 1.04 mg/dL (0.51-0.95); Magnesium 2.3 mg/dL (1.9-2.7); Potassium 4.5 mmol/L (3.5-5.0)
[2022-12-18 08:34] LABS: Anisocytosis 2+; Macrocytosis 1+; Polychromasia 1+
[2022-12-18 08:35] LABS: ABS Basophils 0.4 10^3/uL (0.0-0.1); ABS Eosinophils 0.2 10^3/uL (0.0-0.5); ABS Lymphocytes 1.2 10^3/uL (1.0-4.8); ABS Monocytes 0.8 10^3/uL (0.0-0.9); ABS Neutrophils 93.9 10^3/uL (1.5-7.6); ABS Nucleated RBC 0.63 10^3/ul; Eosinophil % 0.2 %; Lymphocyte % 1.3 %; Nucleated Red Blood Cells % 0.7 /100 WBC (0.0-0.4)
[2022-12-18] MEDS ORDERED: Ondansetron ODT 4 mg TAB 4 MG TAB SL PRN (09:23)
[2022-12-18 13:45] VITALS: BP 140/81
[2022-12-19 18:51] LABS: BCR/ABL PCR Specimen Blood; BCR/ABL p210 Result see interpretation
[2022-12-20 15:30] LABS: CLL Fish Reason for Referral leukocytosis; CLL Fish Result Summary Normal
== END 2022-12-18 16:30 | disposition home or self-care (01) | DRG 357 ==
LOC: ED 03:54 → EDHOLD 10:05 → SUATTDRO 10:05 → OBSVTOIN 10:05 → INTOOBSV 10:05 → EDHOLD 10:34 → ICU 14:33 → MED 12-12 15:17
PROVIDERS: ADMIT Internal Medicine Critical Care Medicine; ATTEND Internal Medicine